=== PATIENT | male | born 1965 | race Two or more races ===

== ENCOUNTER 2017-06-22 09:54 | Emergency (ER) | payer MEDICAID ==
[~2017-06-22] VITALS: Ht 167.6 cm; Wt 82.0 kg
[~2017-06-22 09:54] MED LIST: AMLO5TAB16 PO
[2017-06-22 11:20] LABS: BASOPHILS % (AUTO) 0.3 % (0-1); EOSINOPHILS % (AUTO) 0.1 % (0-6); HEMATOCRIT 41.3 % (42.0-52.0); HEMOGLOBIN 14.3 g/dl (14.0-17.9); LYMPHOCYTES # (AUTO) 0.8 X10'3 (1.1-4.8); LYMPHOCYTES % (AUTO) 7.3 % (21-51); MEAN CORPUSCULAR HEMOGLOBIN 32.8 PG (27.0-31.0); MEAN CORPUSCULAR HGB CONC 34.7 % (33.0-36.5); MEAN CORPUSCULAR VOLUME 94.6 FL (78-98); MEAN PLATELET VOLUME 7.3 FL (7.4-10.4); MONOCYTES # (AUTO) 1.2 X10'3 (0-0.9); MONOCYTES % (AUTO) 10.2 % (2-12); NEUTROPHILS # (AUTO) 9.5 X10'3 (1.8-7.7); NEUTROPHILS % (AUTO) 82.1 % (42-75); PLATELET COUNT 258 X10'3 (140-440); RED BLOOD COUNT 4.36 X10'6 (4.70-6.10); RED CELL DISTRIBUTION WIDTH 13.1 % (11.5-14.5); WHITE BLOOD COUNT 11.6 X10'3 (4.5-11.0)
[2017-06-22 11:31] LABS: PARTIAL THROMBOPLASTIN TIME 31 SECONDS (22-32); PROTHROMBIN TIME 10.5 SECONDS (9.0-12.0)
[2017-06-22 11:36] LABS: ALANINE AMINOTRANSFERASE 33 U/L (12-78); ALBUMIN 3.7 G/DL (3.4-5.0); ALBUMIN/GLOBULIN RATIO 1.1 (1.1-1.5); ALKALINE PHOSPHATASE 73 IU/L (46-116); ANION GAP 9 (8-16); ASPARTATE AMINO TRANSFERASE 21 U/L (10-37); BILIRUBIN,TOTAL 1.6 MG/DL (0.1-1.0); BLOOD UREA NITROGEN 15 MG/DL (7-18); BUN/CREATININE RATIO 18.3 (5.4-32.0); CALCIUM 8.8 MG/DL (8.5-10.1); CHLORIDE 100 MMOL/L (99-107); CREATININE 0.82 MG/DL (0.60-1.10); GLUCOSE 102 MG/DL (70-104); POTASSIUM 3.8 MMOL/L (3.5-5.1); SODIUM 133 MMOL/L (135-145); TOTAL CARBON DIOXIDE 24.1 MMOL/L (24-32); TOTAL PROTEIN 7.1 G/DL (6.4-8.2); eGFR > 90 ML/MIN
[2017-06-22] MEDS ORDERED: sulfamethoxazole/trimethoprim DS (800/160mg) tablet PO ONE (11:55)
[2017-06-22] MEDS ORDERED: normal saline 1000ML IV soln IV ONE (11:55)
[2017-06-22] MEDS ORDERED: ketorolac trometh. 30mg/ml inj. IV ONE (11:55)
[2017-06-22] MEDS ORDERED: CefTRIAXone 2gm/D5W 50ml ADVTG 50 ML IV ONE (11:55)
[2017-06-22] MEDS ORDERED: BACDS PO (13:01)
[2017-06-22 13:19] VITALS: BP 124/101
== END 2017-06-22 13:20 | disposition home or self-care (01) ==
LOC: ER 09:54
DX: L03.011 Cellulitis of right finger (principal); F10.10 Alcohol abuse, uncomplicated; I10 Essential (primary) hypertension; F17.210 Nicotine dependence, cigarettes, uncomplicated; F12.10 Cannabis abuse, uncomplicated; Z88.0 Allergy status to penicillin
CPT/HCPCS: 36415; 80053; 83605; 84145; 85025; 85610; 85730; 87040; 96365; 96375; 99284; J0696; J1885; J7030

== ENCOUNTER 2017-06-23 17:02 | Inpatient (IN) | payer MEDICAID ==
[~2017-06-23] VITALS: Ht 170.2 cm; Wt 82.0 kg
[~2017-06-23 17:02] MED LIST changes: +BACDS PO
[2017-06-23] MEDS ORDERED: levoFLOXACIN-Levaquin 750MG/D5 150 ML IV STA (17:36)
[2017-06-23] MEDS ORDERED: ondansetron/PF 4mg/2ml inj IV ONE (17:40)
[2017-06-23] MEDS ORDERED: normal saline 1000ML IV soln IVB ONE (17:40)
[2017-06-23] MEDS ORDERED: morphine 5 MG/ML injection IV ONE (17:40)
[2017-06-23 18:56] LABS: BASOPHILS % (AUTO) 0.2 % (0-1); EOSINOPHILS # (AUTO) 0.2 X10'3 (0-0.9); EOSINOPHILS % (AUTO) 1.8 % (0-6); HEMATOCRIT 38.3 % (42.0-52.0); HEMOGLOBIN 13.1 g/dl (14.0-17.9); LYMPHOCYTES # (AUTO) 1.5 X10'3 (1.1-4.8); LYMPHOCYTES % (AUTO) 13.3 % (21-51); MEAN CORPUSCULAR HEMOGLOBIN 32.7 PG (27.0-31.0); MEAN CORPUSCULAR HGB CONC 34.2 % (33.0-36.5); MEAN CORPUSCULAR VOLUME 95.5 FL (78-98); MEAN PLATELET VOLUME 7.7 FL (7.4-10.4); MONOCYTES # (AUTO) 1.4 X10'3 (0-0.9); MONOCYTES % (AUTO) 12.1 % (2-12); NEUTROPHILS # (AUTO) 8.2 X10'3 (1.8-7.7); NEUTROPHILS % (AUTO) 72.6 % (42-75); PLATELET COUNT 258 X10'3 (140-440); RED BLOOD COUNT 4.01 X10'6 (4.70-6.10); RED CELL DISTRIBUTION WIDTH 13.3 % (11.5-14.5); WHITE BLOOD COUNT 11.3 X10'3 (4.5-11.0)
[2017-06-23 19:08] LABS: PARTIAL THROMBOPLASTIN TIME 32 SECONDS (22-32); PROTHROMBIN TIME 10.1 SECONDS (9.0-12.0)
[2017-06-23 19:11] LABS: ALANINE AMINOTRANSFERASE 28 U/L (12-78); ALBUMIN 3.8 G/DL (3.4-5.0); ALBUMIN/GLOBULIN RATIO 1.1 (1.1-1.5); ALKALINE PHOSPHATASE 67 IU/L (46-116); ANION GAP 9 (8-16); ASPARTATE AMINO TRANSFERASE 18 U/L (10-37); BILIRUBIN,TOTAL 0.4 MG/DL (0.1-1.0); BLOOD UREA NITROGEN 12 MG/DL (7-18); BUN/CREATININE RATIO 11.4 (5.4-32.0); CALCIUM 8.8 MG/DL (8.5-10.1); CHLORIDE 102 MMOL/L (99-107); CREATININE 1.05 MG/DL (0.60-1.10); GLUCOSE 110 MG/DL (70-104); MAGNESIUM 2.1 MG/DL (1.5-2.4); POTASSIUM 4.1 MMOL/L (3.5-5.1); SODIUM 136 MMOL/L (135-145); TOTAL CARBON DIOXIDE 25.3 MMOL/L (24-32); TOTAL PROTEIN 7.4 G/DL (6.4-8.2); eGFR 74 ML/MIN
[2017-06-23] MEDS ORDERED: vancomycin/NS 1 GM ADD-VANTAGE 250 ML X 1 DOSE IV ONE (19:45)
[2017-06-23] MEDS ORDERED: HYDROmorphone 1 mg/ml syringe IV ONE (19:50)
[2017-06-23] MEDS ORDERED: thiamine inj. 100 MG in normal saline 100ml IV soln 100 ML IV ONE (20:00)
[2017-06-23] MEDS ORDERED: LORazepam 2 mg/ml vial IV ONE (20:05)
[2017-06-23] MEDS ORDERED: acetaminophen 325mg tablet PO PRN ×2 (20:10)
[2017-06-23] MEDS ORDERED: HYDROmorphone 1 mg/ml syringe IV PRN (20:10)
[2017-06-23] MEDS ORDERED: magnesium hydroxide 30ml (MOM) UD suspension PO PRN (20:10)
[2017-06-23] MEDS ORDERED: mag hydrox/Alum hydrox/simeth 30ml oral suspension PO PRN (20:10)
[2017-06-23] MEDS ORDERED: ondansetron/PF 4mg/2ml inj IV PRN (20:10)
[2017-06-23 21:00] VITALS: BP 127/83
[2017-06-23] MEDS: normal saline 1000ml 1,000 ML IV SCH (21:18)
[2017-06-24] VITALS (17 sets, daily range): BP systolic 105–136; BP diastolic 64–94
[2017-06-24] MEDS: HYDROmorphone 1 mg/ml syringe IV PRN ×3 (00:12→20:09)
[2017-06-24] MEDS: LORazepam 2 mg/ml vial IV PRN ×4 (02:05→22:48)
[2017-06-24 06:01] LABS: BASOPHILS % (AUTO) 0.4 % (0-1); EOSINOPHILS # (AUTO) 0.2 X10'3 (0-0.9); EOSINOPHILS % (AUTO) 1.7 % (0-6); HEMATOCRIT 37.8 % (42.0-52.0); HEMOGLOBIN 12.8 g/dl (14.0-17.9); LYMPHOCYTES # (AUTO) 2.2 X10'3 (1.1-4.8); LYMPHOCYTES % (AUTO) 21.7 % (21-51); MEAN CORPUSCULAR HEMOGLOBIN 32.8 PG (27.0-31.0); MEAN CORPUSCULAR HGB CONC 33.8 % (33.0-36.5); MEAN PLATELET VOLUME 8.3 FL (7.4-10.4); MONOCYTES # (AUTO) 1.4 X10'3 (0-0.9); MONOCYTES % (AUTO) 13.3 % (2-12); NEUTROPHILS # (AUTO) 6.4 X10'3 (1.8-7.7); NEUTROPHILS % (AUTO) 62.9 % (42-75); PLATELET COUNT 262 X10'3 (140-440); RED CELL DISTRIBUTION WIDTH 13.4 % (11.5-14.5); WHITE BLOOD COUNT 10.2 X10'3 (4.5-11.0)
[2017-06-24 06:16] LABS: MAGNESIUM 1.9 MG/DL (1.5-2.4); PHOSPHORUS 3.1 MG/DL (2.3-4.5)
[2017-06-24] MEDS ORDERED: vancomycin inj 1,250 MG in normal saline 250ml IV soln 250 ML IV SCH (07:00)
[2017-06-24] MEDS: folic acid 1mg tablet PO SCH (07:02)
[2017-06-24] MEDS: thiamine 100mg tablet PO SCH (07:02)
[2017-06-24] MEDS: multivitamins, therapeutics tablet PO SCH (07:02)
[2017-06-24] MEDS: normal saline 1000ml 1,000 ML IV SCH ×2 (07:17→14:16)
[2017-06-24] MEDS ORDERED: ringers solution, lacted 1,000 ML IV SCH (11:20)
[2017-06-24] MEDS ORDERED: ondansetron/PF 4mg/2ml inj IV PRN (11:20)
[2017-06-24] MEDS ORDERED: fentaNYL/PF 50MCG/1 ML 2ML syringe IV PRN ×2 (11:20)
[2017-06-24] MEDS ORDERED: labetalol 5mg/ml 20ml inj. IV PRN (11:20)
[2017-06-24] MEDS ORDERED: hydrALAZINE 20mg/ml inj. IV PRN (11:20)
[2017-06-24] MEDS ORDERED: BUPIVAcaine/PF 2.5 mg/ml (0.25%) 30ml vial ONE (11:26)
[2017-06-24] MEDS ORDERED: fentaNYL/PF 50MCG/1 ML 2ML syringe ONE (12:16)
[2017-06-24] MEDS ORDERED: midazolam 2 mg/2 ml injection ONE (12:16)
[2017-06-24] MEDS ORDERED: LIDOcaine 2% (20mg/ml) 5ml vial ONE (12:24)
[2017-06-24] MEDS ORDERED: propofol inj 20 ML IV ONE (12:24)
[2017-06-24] MEDS ORDERED: dexamethasone sod phosphate 4mg/ml inj. ONE (12:25)
[2017-06-24] MEDS ORDERED: ondansetron/PF 4mg/2ml inj ONE (12:26)
[2017-06-24] MEDS: vancomycin inj 1,250 MG in normal saline 250ml IV soln 250 ML IV SCH ×2 (14:16→22:49)
[2017-06-25] VITALS: BP 104/63
[2017-06-25] MEDS: normal saline 1000ml 1,000 ML IV SCH ×3 (04:13→19:34)
[2017-06-25] MEDS: HYDROmorphone 1 mg/ml syringe IV PRN ×3 (04:19→19:27)
[2017-06-25] MEDS ORDERED: VANCOMYCIN LEVEL IV NR (06:30)
[2017-06-25 07:09] VITALS: BP 115/76
[2017-06-25 07:32] LABS: BASOPHILS % (AUTO) 0.3 % (0-1); EOSINOPHILS # (AUTO) 0.1 X10'3 (0-0.9); EOSINOPHILS % (AUTO) 0.7 % (0-6); HEMATOCRIT 39.7 % (42.0-52.0); HEMOGLOBIN 13.4 g/dl (14.0-17.9); LYMPHOCYTES # (AUTO) 1.4 X10'3 (1.1-4.8); LYMPHOCYTES % (AUTO) 15.2 % (21-51); MEAN CORPUSCULAR HEMOGLOBIN 32.2 PG (27.0-31.0); MEAN CORPUSCULAR HGB CONC 33.7 % (33.0-36.5); MEAN CORPUSCULAR VOLUME 95.6 FL (78-98); MEAN PLATELET VOLUME 7.8 FL (7.4-10.4); MONOCYTES # (AUTO) 0.9 X10'3 (0-0.9); MONOCYTES % (AUTO) 9.5 % (2-12); NEUTROPHILS # (AUTO) 6.9 X10'3 (1.8-7.7); NEUTROPHILS % (AUTO) 74.3 % (42-75); PLATELET COUNT 310 X10'3 (140-440); RED BLOOD COUNT 4.16 X10'6 (4.70-6.10); WHITE BLOOD COUNT 9.3 X10'3 (4.5-11.0)
[2017-06-25 07:47] LABS: ALBUMIN 3.3 G/DL (3.4-5.0); ANION GAP 7 (8-16); BLOOD UREA NITROGEN 11 MG/DL (7-18); BUN/CREATININE RATIO 11.3 (5.4-32.0); CHLORIDE 104 MMOL/L (99-107); CREATININE 0.97 MG/DL (0.60-1.10); GLUCOSE 124 MG/DL (70-104); PHOSPHORUS 3.9 MG/DL (2.3-4.5); POTASSIUM 4.4 MMOL/L (3.5-5.1); SODIUM 139 MMOL/L (135-145); TOTAL CARBON DIOXIDE 28.1 MMOL/L (24-32); VANCOMYCIN,TROUGH 15.7 UG/ML (6.0-14.0); eGFR 81 ML/MIN
[2017-06-25] MEDS: LACTOBACILLUS RHAMNOSUS GG 15 billion unit sprinkle caps PO SCH (08:10)
[2017-06-25] MEDS: vancomycin inj 1,250 MG in normal saline 250ml IV soln 250 ML IV SCH ×3 (08:10→22:41)
[2017-06-25] MEDS: thiamine 100mg tablet PO SCH (08:10)
[2017-06-25] MEDS: folic acid 1mg tablet PO SCH (08:10)
[2017-06-25] MEDS: multivitamins, therapeutics tablet PO SCH (08:11)
[2017-06-25] MEDS: LORazepam 2 mg/ml vial IV PRN (08:17)
[2017-06-25] MEDS ORDERED: FLU VACC QS2017-18 36MOS UP/PF 60 MCG/0.5 ML SYRINGE IMVAC ONE (10:00)
[2017-06-25 11:47] VITALS: BP 113/76
[2017-06-25 20:00] VITALS: BP 129/80
[2017-06-25] MEDS ORDERED: LORazepam 2 mg/ml vial IV PRN (20:00)
[2017-06-25] MEDS: LORazepam 1 MG tablet PO PRN (22:40)
[2017-06-26] VITALS: BP 120/78
[2017-06-26] MEDS: HYDROmorphone 1 mg/ml syringe IV PRN ×5 (00:26→20:54)
[2017-06-26] MEDS: LORazepam 1 MG tablet PO PRN ×4 (02:11→18:55)
[2017-06-26 04:24] LABS: BASOPHILS # (AUTO) 0.1 X10'3 (0-0.2); BASOPHILS % (AUTO) 0.5 % (0-1); EOSINOPHILS # (AUTO) 0.2 X10'3 (0-0.9); EOSINOPHILS % (AUTO) 1.6 % (0-6); HEMATOCRIT 37.4 % (42.0-52.0); HEMOGLOBIN 12.8 g/dl (14.0-17.9); LYMPHOCYTES # (AUTO) 2.5 X10'3 (1.1-4.8); LYMPHOCYTES % (AUTO) 23.7 % (21-51); MEAN CORPUSCULAR HEMOGLOBIN 32.5 PG (27.0-31.0); MEAN CORPUSCULAR HGB CONC 34.2 % (33.0-36.5); MEAN CORPUSCULAR VOLUME 94.9 FL (78-98); MEAN PLATELET VOLUME 7.8 FL (7.4-10.4); MONOCYTES # (AUTO) 0.9 X10'3 (0-0.9); NEUTROPHILS # (AUTO) 6.8 X10'3 (1.8-7.7); NEUTROPHILS % (AUTO) 65.2 % (42-75); PLATELET COUNT 307 X10'3 (140-440); RED BLOOD COUNT 3.94 X10'6 (4.70-6.10); RED CELL DISTRIBUTION WIDTH 12.7 % (11.5-14.5); WHITE BLOOD COUNT 10.4 X10'3 (4.5-11.0)
[2017-06-26 04:47] LABS: ALBUMIN 3.2 G/DL (3.4-5.0); ANION GAP 9 (8-16); BLOOD UREA NITROGEN 16 MG/DL (7-18); BUN/CREATININE RATIO 18.6 (5.4-32.0); CALCIUM 8.6 MG/DL (8.5-10.1); CHLORIDE 102 MMOL/L (99-107); CREATININE 0.86 MG/DL (0.60-1.10); GLUCOSE 110 MG/DL (70-104); MAGNESIUM 1.6 MG/DL (1.5-2.4); PHOSPHORUS 3.5 MG/DL (2.3-4.5); POTASSIUM 3.8 MMOL/L (3.5-5.1); SODIUM 136 MMOL/L (135-145); eGFR > 90 ML/MIN
[2017-06-26] MEDS: vancomycin inj 1,250 MG in normal saline 250ml IV soln 250 ML IV SCH ×3 (07:16→20:37)
[2017-06-26] MEDS: LACTOBACILLUS RHAMNOSUS GG 15 billion unit sprinkle caps PO SCH (07:17)
[2017-06-26] MEDS: folic acid 1mg tablet PO SCH (07:17)
[2017-06-26] MEDS: multivitamins, therapeutics tablet PO SCH (07:17)
[2017-06-26] MEDS: thiamine 100mg tablet PO SCH (07:17)
[2017-06-26] MEDS: normal saline 1000ml 1,000 ML IV SCH ×3 (07:17→20:37)
[2017-06-26 07:34] VITALS: BP 139/82
[2017-06-26 11:31] VITALS: BP 129/78
[2017-06-26] MEDS: oxyCODONE/APAP 10/325mg tablet PO PRN ×2 (13:33→18:47)
[2017-06-26 18:50] VITALS: BP 117/78
[2017-06-27] VITALS: BP 132/82
[2017-06-27] MEDS: oxyCODONE/APAP 10/325mg tablet PO PRN ×2 (00:44→08:17)
[2017-06-27] MEDS: LORazepam 1 MG tablet PO PRN ×3 (00:47→09:47)
[2017-06-27] MEDS: HYDROmorphone 1 mg/ml syringe IV PRN (05:09)
[2017-06-27 06:05] LABS: BASOPHILS % (AUTO) 0.4 % (0-1); EOSINOPHILS # (AUTO) 0.2 X10'3 (0-0.9); HEMATOCRIT 42.1 % (42.0-52.0); HEMOGLOBIN 14.3 g/dl (14.0-17.9); LYMPHOCYTES # (AUTO) 2.4 X10'3 (1.1-4.8); LYMPHOCYTES % (AUTO) 30.1 % (21-51); MEAN CORPUSCULAR HEMOGLOBIN 32.4 PG (27.0-31.0); MEAN CORPUSCULAR HGB CONC 34.1 % (33.0-36.5); MEAN CORPUSCULAR VOLUME 95.2 FL (78-98); MEAN PLATELET VOLUME 7.9 FL (7.4-10.4); MONOCYTES # (AUTO) 1.1 X10'3 (0-0.9); MONOCYTES % (AUTO) 13.5 % (2-12); NEUTROPHILS # (AUTO) 4.4 X10'3 (1.8-7.7); PLATELET COUNT 299 X10'3 (140-440); RED BLOOD COUNT 4.42 X10'6 (4.70-6.10); WHITE BLOOD COUNT 8.1 X10'3 (4.5-11.0)
[2017-06-27 06:37] LABS: ALBUMIN 3.2 G/DL (3.4-5.0); ANION GAP 8 (8-16); BLOOD UREA NITROGEN 11 MG/DL (7-18); BUN/CREATININE RATIO 12.5 (5.4-32.0); CHLORIDE 101 MMOL/L (99-107); CREATININE 0.88 MG/DL (0.60-1.10); GLUCOSE 101 MG/DL (70-104); MAGNESIUM 1.7 MG/DL (1.5-2.4); PHOSPHORUS 4.3 MG/DL (2.3-4.5); SODIUM 137 MMOL/L (135-145); TOTAL CARBON DIOXIDE 28.1 MMOL/L (24-32); eGFR > 90 ML/MIN
[2017-06-27 08:00] VITALS: BP 129/80
[2017-06-27] MEDS: LACTOBACILLUS RHAMNOSUS GG 15 billion unit sprinkle caps PO SCH (08:17)
[2017-06-27] MEDS: folic acid 1mg tablet PO SCH (08:17)
[2017-06-27] MEDS: multivitamins, therapeutics tablet PO SCH (08:17)
[2017-06-27] MEDS: thiamine 100mg tablet PO SCH (08:17)
[2017-06-27] MEDS: vancomycin inj 1,250 MG in normal saline 250ml IV soln 250 ML IV SCH (08:23)
[2017-06-27] MEDS: normal saline 1000ml 1,000 ML IV SCH (08:23)
[2017-06-27] MEDS ORDERED: LEVO500T89 PO (10:23)
[2017-06-27] MEDS ORDERED: CLIN-5 PO (10:23)
[2017-06-27] MEDS ORDERED: OXYC-150 PO (10:23)
[2017-06-27] MEDS ORDERED: LORazepam 1 MG tablet PO PRN (20:00)
[2017-06-27] MEDS ORDERED: LORazepam 2 mg/ml vial IV PRN (20:00)
== END 2017-06-27 12:00 | disposition home or self-care (01) | DRG 364 ==
LOC: ER 17:02 → ED HOLD 20:10 → SUR 3N 20:50
PROVIDERS: ADMIT Internal Medicine; ATTEND Family Medicine
PROC: 0L970ZZ Drainage of Right Hand Tendon, Open Approach (ICD-10-PCS; 2017-06-24)
PROC: 0LD70ZZ Extraction of Right Hand Tendon, Open Approach (ICD-10-PCS; principal; 2017-06-24 12:10)
DX: L03.011 Cellulitis of right finger (principal); I95.9 Hypotension, unspecified; I10 Essential (primary) hypertension; L03.113 Cellulitis of right upper limb; F10.20 Alcohol dependence, uncomplicated; M25.572 Pain in left ankle and joints of left foot; M65.9 Synovitis and tenosynovitis, unspecified; F12.90 Cannabis use, unspecified, uncomplicated; F32.9 Major depressive disorder, single episode, unspecified; G89.29 Other chronic pain; R59.0 Localized enlarged lymph nodes; Z59.0 Homelessness; Z93.3 Colostomy status; Z79.899 Other long term (current) drug therapy; Z79.01 Long term (current) use of anticoagulants; Z88.0 Allergy status to penicillin
CPT/HCPCS: 36415; 73130; 73564; 73610; 80048; 80053; 80202; 82948; 83605; 83735; 84100; 84145; 85025; 85610; 85730; 87040; 87070; 87075; 87077; 87186; 93005; 96365; 96375; 99285; A6222; A6258; A6446; A6449; A7000; J1100; J1170; J1956; J2001; J2060; J2250; J2270; J2405; J2704; J3010; J3370; J3411; J3490; J7030; J7120; Q2037

== ENCOUNTER 2017-09-08 21:06 | Emergency (ER) | payer MEDICAID ==
[~2017-09-08] VITALS: Ht 170.2 cm; Wt 81.6 kg
[~2017-09-08 21:06] MED LIST changes: -BACDS PO; +CLIN-5 PO; +OXYC-150 PO
[2017-09-08 21:09] VITALS: BP 113/69
== END 2017-09-08 22:41 | disposition home or self-care (01) ==
LOC: ER 21:07
DX: M25.572 Pain in left ankle and joints of left foot (principal); I10 Essential (primary) hypertension; F12.10 Cannabis abuse, uncomplicated; Z88.0 Allergy status to penicillin
CPT/HCPCS: 73610; 99284

== ENCOUNTER 2019-01-09 07:23 | Emergency (ER) | payer MEDICAID ==
[~2019-01-09] VITALS: Ht 170.2 cm; Wt 78.0 kg
[2019-01-09 07:26] VITALS: BP 145/89
[2019-01-09] MEDS ORDERED: MELO-100 PO (08:03)
[2019-01-09] MEDS ORDERED: HYDR-3965 PO (08:03)
[2019-01-09] MEDS ORDERED: ketorolac trometh inj. 60 MG/2 ML VIAL IM ONE (08:05)
[2019-01-09] MEDS ORDERED: ondansetron 4mg rapidly disintigrating tab PO ONE (08:05)
[2019-01-09] MEDS ORDERED: HYDROcodone/acetaminophen 5mg/325mg tablet PO ONE (08:05)
== END 2019-01-09 08:40 | disposition home or self-care (01) ==
LOC: ER 07:23
DX: S52.692A Other fracture of lower end of left ulna, initial encounter for closed fracture (principal); I10 Essential (primary) hypertension; F32.9 Major depressive disorder, single episode, unspecified; F12.90 Cannabis use, unspecified, uncomplicated; Z98.890 Other specified postprocedural states; Z88.0 Allergy status to penicillin; Z79.2 Long term (current) use of antibiotics; Z79.899 Other long term (current) drug therapy; W01.0XXA Fall on same level from slipping, tripping and stumbling without subsequent striking against object, initial encounter; Y93.89 Activity, other specified; Y92.89 Other specified places as the place of occurrence of the external cause; Y99.8 Other external cause status
CPT/HCPCS: 29105; 73090; 73110; 96372; 99284; J1885; J2405

== ENCOUNTER 2020-02-27 02:20 | Emergency (ER) | payer MEDICAID ==
[~2020-02-27] VITALS: Ht 167.6 cm; Wt 70.0 kg
[~2020-02-27 02:20] MED LIST changes: +MELO-100 PO
[2020-02-27 02:25] VITALS: BP 144/89
--- NOTE | 2020-02-27 02:31 | NUR ---
Ice pack given
== END 2020-02-27 03:54 | disposition home or self-care (01) ==
LOC: ER 02:21
DX: M17.11 Unilateral primary osteoarthritis, right knee (principal); I10 Essential (primary) hypertension; F32.9 Major depressive disorder, single episode, unspecified; F12.90 Cannabis use, unspecified, uncomplicated; Z98.890 Other specified postprocedural states; Z72.89 Other problems related to lifestyle; Z88.0 Allergy status to penicillin; Z79.899 Other long term (current) drug therapy
CPT/HCPCS: 29505; 73564; 99284

== ENCOUNTER 2023-12-02 06:33 | Emergency (ER) | payer MEDICAID ==
[~2023-12-02] VITALS: Ht 167.6 cm; Wt 67.8 kg
[~2023-12-02 06:33] MED LIST changes: +CLIN-232 PO; -CLIN-5 PO
[2023-12-02 06:36] VITALS: TEMP 97.1
[2023-12-02] MEDS: ketorolac tromethamine 15mg/ml inj. IM ONE (08:08)
[2023-12-02] MEDS ORDERED: CYCL-1 PO (08:08)
[2023-12-02 08:42] VITALS: BP 113/79; PULSE 60; RESP 16; O2SAT 98
== END 2023-12-02 08:45 | disposition home or self-care (01) ==
LOC: ER 06:34
DX: M54.2 Cervicalgia (principal); I10 Essential (primary) hypertension; F17.210 Nicotine dependence, cigarettes, uncomplicated; F12.90 Cannabis use, unspecified, uncomplicated; Z88.0 Allergy status to penicillin; Z79.899 Other long term (current) drug therapy; Z79.2 Long term (current) use of antibiotics; Z90.49 Acquired absence of other specified parts of digestive tract
CPT/HCPCS: 72125; 96372; 99285; J1885; L0172